=== PATIENT | male | born 1995 | race Caucasian/White ===

== ENCOUNTER 2017-01-05 01:38 | Observation (INO) ==
[2017-01-05] MEDS ORDERED: SALINE FLUSH 10ml SYRINGE IVF PRN (01:45)
[2017-01-05] MEDS ORDERED: ALBUTEROL 2.5mg/3ml (0.083%) NEB AEROSOL ONE (01:45)
[2017-01-05] MEDS ORDERED: METHYLPREDNISOLONE SOD SUCC 125mg/2ml INJECTION IVP ONE (01:46)
[2017-01-05] MEDS ORDERED: NS IV ONE (01:58)
[2017-01-05] MEDS ORDERED: IPRATROPIUM/ALBUTEROL 2.5mg-0.5mg/3ml NEB AEROSOL ONE ×2 (01:58→02:41)
[2017-01-05] MEDS ORDERED: MAGNESIUM SULFATE IV ONE (01:58)
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
[2017-01-05] MEDS ORDERED: NS 1,000 ML IV ONE (02:31)
[2017-01-05] MEDS ORDERED: IBUPROFEN 600 MG TABLET PO PRN (04:00)
[2017-01-05] MEDS ORDERED: HYDROCODONE/APAP 5mg/325mg TABLET PO PRN (04:00)
[2017-01-05] MEDS ORDERED: D5-1/2NS 1,000 ML IV SCH (04:00)
[2017-01-05] MEDS ORDERED: ACETAMINOPHEN 325 MG TABLET PO PRN (04:00)
[2017-01-05] MEDS ORDERED: PredniSONE 20 MG TABLET PO ONE (04:31)
[2017-01-05] MEDS ORDERED: ALBUTEROL 2.5mg/0.5ml (0.5%) NEB IH PRN (04:31)
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
[2017-01-05] MEDS: FLUTICASONE ORAL INH SCH ×3 (05:21→19:09)
[2017-01-05] MEDS: SALMETEROL ORAL INH SCH ×3 (05:21→19:09)
[2017-01-05] MEDS: IPRATROPIUM/ALBUTEROL 2.5mg-0.5mg/3ml NEB IH SCH ×3 (07:19→15:15)
--- NOTE | 2017-01-05 08:11 | XRay Report ---
EXAM: XR chest 1V HISTORY: cough LOCATION OF DICTATION: [facility] COMPARISON: No available studies for comparison. FINDINGS: The cardiomediastinal silhouette is normal. The mediastinum is not widened. The trachea is midline. The pulmonary vascularity is not engorged. The lung herron are clear and the costophrenic angles are sharp. The bony thorax is unremarkable. IMPRESSION: No acute cardiopulmonary process is identified. .
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
[2017-01-06] MEDS ORDERED: ALBUTEROL 2.5mg/3ml (0.083%) NEB AEROSOL ONE (04:17)
[2017-01-06] MEDS ORDERED: ALBUTEROL 2.5mg/0.5ml (0.5%) NEB AEROSOL ONE (04:18)
[2017-01-06] MEDS: IPRATROPIUM/ALBUTEROL 2.5mg-0.5mg/3ml NEB IH SCH ×4 (04:36→19:50)
[2017-01-06] MEDS ORDERED: 1/2 NS 1,000 ML IV SCH ×2 (09:10→16:00)
[2017-01-06] MEDS: FLUTICASONE ORAL INH SCH (09:23)
[2017-01-06] MEDS: SALMETEROL ORAL INH SCH (09:23)
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
[2017-01-06] MEDS: PredniSONE 20 MG TABLET PO SCH (11:29)
[2017-01-06] MEDS: FLUTICASONE NASAL SPRAY 50mcg EA NOSTRIL SCH (11:33)
[2017-01-07] MEDS: SALMETEROL ORAL INH SCH (08:07)
[2017-01-07] MEDS: FLUTICASONE ORAL INH SCH (08:07)
[2017-01-07] MEDS: PredniSONE 20 MG TABLET PO SCH (08:13)
[2017-01-07] MEDS: FLUTICASONE NASAL SPRAY 50mcg EA NOSTRIL SCH (08:14)
[2017-01-07] MEDS: IPRATROPIUM/ALBUTEROL 2.5mg-0.5mg/3ml NEB IH SCH (09:35)
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
== END 2017-01-07 11:26 | disposition home or self-care (01) ==
LOC: MED 01:38 → ED 01:38 → MED 04:05
PROVIDERS: ADMIT Internal Medicine; ATTEND Hospitalist